=== PATIENT | male | born 1970 | race Caucasian/White ===

== ENCOUNTER 2020-01-20 10:19 | Emergency (ER) | payer SELFPAY ==
[2020-01-20 10:38] VITALS: BP 170/55
== END 2020-01-20 10:38 | disposition left against medical advice (07) | DRG 159 ==
LOC: ED 10:19
DX: S01.521A Laceration with foreign body of lip, initial encounter (principal); W31.1XXA Contact with metalworking machines, initial encounter; Y93.89 Activity, other specified; Y92.89 Other specified places as the place of occurrence of the external cause; Y99.0 Civilian activity done for income or pay; Z91.19 Patient's noncompliance with other medical treatment and regimen